=== PATIENT | female | born 2000 | race Caucasian/White ===

== ENCOUNTER 2024-03-27 23:07 | Emergency (ER) | payer OTHER, SELFPAY ==
[2024-03-27 23:10] VITALS: BP 134/82
--- NOTE | 2024-03-27 23:30 | ED.GENMED ---
History of Present Illness
General
Chief Complaint: Abdominal Pain
Time Seen by Provider: 03/27/24 23:29
History of Present Illness
History of Present Illness:
TIME OF INITIAL ENCOUNTER: 11:30 PM
HPI: Patient started having some abdominal discomfort yesterday but then this evening started to have much more severe pain in the right lower quadrant. The pain was so severe earlier that she nearly passed out and had 'tunnel vision'. However as
I walked in the room initially she had no further pain. She states she has had some abnormal periods over the last 2 months and normally is very regular. However she also denies any chance of .
EXAM:
GENERAL: Well appearing in no distress
HEENT: Moist oral mucosa
CARDIOVASCULAR: No murmurs, normal heart rate, regular rhythm, No chest wall tenderness
PULMONARY: No respiratory distress, breath sounds are clear and equal
ABDOMEN: Soft with no peritoneal signs, moderate tenderness in the left lower and right upper and more severe tenderness in the right lower quadrant
NEUROLOGIC: Excellent strength all extremities, no coordination deficits
PSYCHIATRIC: Appropriate mental status, normal insight and judgement
EXTREMITIES: Nontender, no edema, moves all extremities equally
SKIN: No rash, no lesions
NUMBER AND COMPLEXITY OF PROBLEMS ADDRESSED AT THE ENCOUNTER
� Chronic conditions affecting care: No significant past medical history
� Acute Exacerbation and/or Progression of Chronic Illness: This is an acute problem
� Differential Diagnosis includes: Appendicitis, ovarian cyst, oblique muscle strain, IBS, ectopic
AMOUNT AND/OR COMPLEXITY OF DATA TO BE REVIEWED AND ANALYZED
� I performed an independent evaluation of and my interpretation is:
EKG:
CT: CT imaging personally reviewed and I see findings consistent with seen on ultrasound and no evidence for appendicitis
X-rays:
Laboratory Studies: White count 7.7, hemoglobin normal, chemistries unremarkable, hCG negative
Other: Ultrasound imaging shows right-sided ovarian cyst
� Review of other/old records: The patient had a CAT scan in 2019 that showed no acute abnormality
� Clinical information was obtained by an independent historian: I spoke to her friend at bedside
� Prescriptions/Medications Considered but not given:
� Further testing considered but not performed:
RISK OF COMPLICATIONS AND/OR MORBIDITY OR MORTALITY OF PATIENT MANAGEMENT
� Social determinants of health affecting care: Lives at home
� Discussion with other providers: None needed
� Escalation of care including admission/observation vs risk of discharge considered: The patient declines analgesia. Will obtain ultrasound imaging ridging for further evaluation. Although patient did have some irregularity to
her periods recently, her hCG testing is negative. CT imaging also obtained that she is primarily significantly tender in the right lower quadrant.
ANY OTHER UPDATES:
1:20 AM: The patient continues to decline analgesia. Currently has no pain but did have some pain while during the ultrasound. We talked about the possibly of ovarian torsion and the difficulty in making diagnosis but is as of right now relatively
low suspicion for torsion. She is to follow-up with [facility].
Past History
Past History
ED Past Medical History: None
ED Past Surgical History: None
Social History
Tobacco: Non-smoker
Personal: Single
Living: with family
Employment: Student
Phy Exam
Physical Exam
Physical Exam:
See HPI
Course
Orders/Labs/Results
Orders:
Orders
03/27/24 23:35
0.9% Sodium Chloride 1000 ml [Nss] 1,000 ml IV BOLUS
03/27/24 23:36
Test Result ONCE
03/27/24 23:37
US Pelvis W Transvag Combined Urgent
Reason For Exam: R pain intermittently severe
03/27/24 23:45
Complete Blood Count/With Diff Urgent
Comprehensive Metabolic Panel Urgent
HCG, Serum Qualitative Screen Urgent
03/28/24 00:02
CT Abd/pelvis W Iv Cont Urgent
Reason For Exam: RLQ tender
Abnormal Lab Results
03/27/24
23:45
BUN 18 H mg/dl
(7-17)
AST 43 H U/L
(14-36)
03/27/24 23:45
03/27/24 23:45
Vital Signs
Initial and Last Documented VS:
Initial Vital Signs
Temp Pulse Resp BP Pulse Ox
97.7 F 92 22 134/82 100
03/27/24 23:10 03/27/24 23:10 03/27/24 23:10 03/27/24 23:10 03/27/24 23:10
Last Documented Vital Signs
Temp Pulse Resp BP Pulse Ox
97.7 F 98 16 113/66 99
03/27/24 23:10 03/28/24 01:15 03/28/24 01:15 03/28/24 01:15 03/28/24 01:15
*Critical Care Note
Total Time (30-74mins, 75-104mins- exclusive of procedures): Not Applicable
ED Attending Note
-
Portions of this chart may have been created with voice recognition software.� Occasional wrong word or��sound alike� substitutions may have occurred due to the inherent limitations of voice recognition software.
Discharge Plan
Departure
Patient Disposition: Home (Routine Discharge)
Date of Disposition: 03/28/24
Time of Disposition: 01:26
Patient with high blood pressure during this ER visit?: Yes
Discharge Problem:
Ovarian cyst
Instructions: Ovarian Cyst (DC)
Referrals:
Chema Bae MD [Family Provider] -
Bernadine Bingham MD [Active] - Follow up in 2-3 days
Activity Restrictions/Additional Instructions:
Please follow-up with your hospital staff pharmacist. I have also given you the contact information for [facility] staff pharmacist. I recommend 3-4 [id number] ibuprofen (Motrin) every 8 hours with food for a few days. Return here if symptoms worsen again
as ovarian torsion is still a possibility however as of the ultrasound, there was normal blood flow noted with no sign of torsion. ULTRASOUND REPORT: 'Normal uterus, endometrium measures 1.2 cm, small amount of free fluid in the posterior pelvis,
left ovary not visualized, enlarged right ovary, volume 50.9 mL, with 3.9 x 2.6 x 3.0 cm hemorrhagic cyst. Normal ovarian venous and arterial waveforms'. CT REPORT: '3.7cm right hemorrhagic cyst; no kidney stones; normal appendix.'
Interventions
Interventions:
*Risk Screen - Suicide Last Done: 03/27/24 23:10
*General Assessment Last Done: 03/27/24 23:47
*Neglect/Abuse Screening Last Done: 03/27/24 23:10
ED- Fall Risk Assessment Last Done: 03/28/24 01:10
*ED COVID-19 Vaccine History Last Done: 03/27/24 23:47
*Nursing Disposition Last Done: 03/28/24 01:51
YU-Kkxfkf-Bodxmwrddj Assessment Last Done: 03/27/24 23:47
Discharge Date and Time
Discharge Date/Time: 03/28/24 01:51
Print Language: [place]
[2024-03-27 23:46] VITALS: BMI 27.0
[2024-03-27] MEDS: NSS 1000 IV (23:50)
[2024-03-27 23:57] LABS: % Basophils 0.3 % (0-2); % Eosinophils 0.3 % (0-6); % Immature Granulocytes 0.3 % (0-0.5); % Lymphocytes 32.2 % (20.5-51.1); % Monocytes 5.7 % (1.7-9.3); % Neutrophils 61.2 % (42.2-75.2); Absolute Lymphocytes 2.5 10^3/uL (1.2-3.4); Absolute Monocytes 0.4 10^3/uL (0.1-0.6); Absolute Neutrophils 4.7 10^3/uL (1.4-6.5); Hematocrit 38.5 % (37.0-47.0); Hemoglobin 13.4 g/dL (12.0-16.0); Mean Corp Hgb Conc. 34.8 g/dL (33.0-37.0); Mean Corpuscular Volume 86.3 fL (81.0-99.0); Mean Platelet Volume 10.2 fL (7.4-10.4); Nucleated Red Blood Cells % 0 %; Platelet Count 261 10^3/uL (130-400); Red Blood Cell Count 4.46 10^6/uL (4.20-5.40); Red Cell Dist. Width 11.9 % (11.5-14.5); White Blood Cell Count 7.7 10^3/uL (4.8-10.8)
[2024-03-28 00:06] LABS: HCG, Serum Qualitative Screen Negative
[2024-03-28 00:09] LABS: ALT (SGPT) 24 U/L (0-35); AST (SGOT) 43 U/L (14-36); Albumin 4.5 g/dl (3.5-5.0); Alkaline Phosphatase 53 U/L (38-126); Blood Urea Nitrogen 18 mg/dl (7-17); Calcium 9.1 mg/dl (8.4-10.2); Carbon Dioxide 23 mmol/L (22-30); Chloride 106 mmol/L (98-107); Estimated Creatinine Clearance 117 ml/min; Glucose 91 mg/dl (70-99); Potassium 3.9 mmol/L (3.5-5.1); Sodium 143 mmol/L (135-145); Total Bilirubin 0.5 mg/dl (0.2-1.3); eGFR > 60.00
[2024-03-28 01:15] VITALS: BP 113/66
== END 2024-03-28 01:51 | disposition home or self-care (01) ==
LOC: EMR 23:07
PROVIDERS: EMERGENCY PHYSICIAN Emergency Medicine; FAMILY PHYSICIAN Internal Medicine
DX: R55 Syncope and collapse (principal); R10.31 Right lower quadrant pain; N83.201 Unspecified ovarian cyst, right side; R03.0 Elevated blood-pressure reading, without diagnosis of hypertension; Z88.6 Allergy status to analgesic agent
CPT/HCPCS: 99285; 96360; 74177; 76830; 76856; 80053; 84703; 85025; Q9967